=== PATIENT | female | born 1995 ===

== ENCOUNTER 2017-05-28 14:56 | Emergency (ER) | payer BC ==
[~2017-05-28] VITALS: Ht 160 cm; Wt 54.1 kg
[2017-05-28 15:16] VITALS: TEMP 37.4; Ht 160 cm; Wt 54.1 kg
[2017-05-28] MEDS ORDERED: LEVO1IUD2 (15:27)
[2017-05-28] MEDS ORDERED: DOXY100C76 PO (15:27)
[2017-05-28] MEDS ORDERED: ONDANSETRON INJ 2 MG/ML 2 ML VIAL IV STA (15:58)
[2017-05-28] MEDS ORDERED: SODIUM CHLORIDE 0.9% 1000ML 1,000 ML IV STA ×2 (15:58)
[2017-05-28] MEDS ORDERED: MoRPHine SULFATE 4 MG/ML 1 ML CARP\\VIAL IV STA ×2 (15:58→17:58)
[2017-05-28] MEDS ORDERED: KETOROLAC TROMETHAMINE 30 MG/ML VIAL IV STA (15:58)
[2017-05-28 16:33] LABS: BASO % 0.3 %; BASO ABS # 0.02 K/uL (0-0.2); EOS % 0.9 %; EOS ABS # 0.06 K/uL (0-0.5); HEMATOCRIT 41.3 % (37-47); HEMOGLOBIN 14.9 g/dL (12.0-16.0); IG# 0.01 K/uL (0.00-0.02); LYMPH % 33.2 %; LYMPH ABS # 2.18 K/uL (1.2-3.4); MEAN CORPUSCULAR HEMOGLOBIN 33.2 pg (25-34); MEAN CORPUSCULAR HGB CONC 36.1 g/dl (32-36); MEAN PLATELET VOLUME 9.5 fL (7.4-10.4); MONO % 4.7 %; MONO ABS # 0.31 K/uL (0.11-0.59); NEUT % 60.7 %; NEUT ABS # 3.98 K/uL (1.4-6.5); PLATELET COUNT 275 K/uL (130-400); RED CELL DISTRIBUTION WIDTH CV 12.4 % (11.5-14.5); RED CELL DISTRIBUTION WIDTH SD 41.6 fL (36.4-46.3); WHITE BLOOD COUNT 6.56 K/uL (4.8-10.8)
[2017-05-28 16:52] LABS: ALBUMIN 4.5 gm/dl (3.4-5.0); CALCIUM 9.9 mg/dl (8.5-10.1); CREATININE 0.65 mg/dl (0.60-1.20); POTASSIUM 3.5 mmol/L (3.5-5.1)
[2017-05-28 16:54] LABS: TOTAL PROTEIN 8.3 gm/dl (6.4-8.2)
--- NOTE | 2017-05-28 17:48 | DIAGNOSTIC IMAGING REPORT ---
PELVIC COMPLETE NON OB HISTORY: 21 years-old Female EVAL PELVIC PAIN, R>L, TUBO-OVARIAN ABSCESS? Acute bilateral pelvic pain COMPARISON: None available TECHNIQUE: Multiple real-time sonographic images of the deep pelvic structures were obtained transabdominally and transvaginally assessing grayscale appearance, color and spectral flow FINDINGS: TRANSABDOMINAL: Anteflexed uterus measures 7.5 x 2.8 x 3.4 cm. Endometrium measures 0.4 cm. Right ovary measures 4.1 x 1.8 x 3.4 cm with follicles noted. There is a hypoechoic structure within the right ovary suggesting dominant follicle. Arterial inflow to the right ovary is documented. The left ovary measures 4.0 x 1.8 x 2.0 cm and is unremarkable with arterial inflow documented. TRANSVAGINAL: Anteflexed uterus measures 6.7 x 2.9 x 4.5 cm. Intrauterine device is noted within the mid and fundal portions of the uterus which appears appropriately positioned. Endometrium measures 0.6 cm in thickness. No myometrial mass lesions identified. Arterial inflow noted within the right ovary measuring 3.9 x 2.7 x 3.0 cm. 1.4 cm cystic structure of the right ovary suggests dominant follicle. Left ovary measures 3.7 x 2.4 x 2.2 cm and is unremarkable with arterial inflow documented. Mild amount of free pelvic fluid within the cul-de-sac. IMPRESSION: 1. 1.4 cm cystic lesion of the right ovary suggests dominant follicle. No evidence of ovarian torsion. 2. IUD in situ. 3. Unremarkable sonographic appearance of the uterus and endometrium. 4. Mild free pelvic fluid, likely physiologic. The above report was generated using voice recognition software. It may contain grammatical, syntax or spelling errors. Electronically signed by: Angelito Levy M.D. 05/28/2017 5:46 PM Dictated Date/Time: 05/28/2017 5:43 PM
[2017-05-28] MEDS ORDERED: ONDA4TAB10 SL (19:23)
[2017-05-28] MEDS ORDERED: OXYC1TAB3 PO (19:23)
--- NOTE | 2017-05-28 19:23 | EMERGENCY ROOM VISIT NOTE ---
History First contact with patient: 15:41 Chief Complaint: PELVIC PAIN Stated Complaint: ABDOMINAL PAIN, VAGINAL DISCHARGE, LEG/PELVIC PAIN History of Present Illness Patient is a 21-year-old white female, [employer] student from [place], who presents the emergency department accompanied by her boyfriend for evaluation of pelvic pain. Patient was referred to the emergency department by [facility] for follow-up of suspected PID. Patient relates that she has a Mirena IUD in place for irregular menses, she has had it for about 1-2 years. She reports that she had a partner for a year which ended a couple of months ago. She met a new partner in March of this year and began having unprotected sex in April. She developed some pelvic cramping and vaginal bleeding on 05/15. She was seen at an urgent care center on 05/17 for heavy bleeding, but did not have a pelvic exam. While home in [place] over spring break on 05/21, she was seen at the advanced practice professional office and had swabs for chlamydia and gonorrhea. They reportedly could see the IUD strings at that time , she did not have a bimanual exam performed. She continued to have a lot of pelvic pain. She was contacted by the advanced practice professional on 05/25 with a positive Chlamydia test. She was seen by the physician and told that she had PID. She was given an injection of an antibiotic and a prescription for doxycycline 100 mg twice daily for 14 days. The patient continues to note a lot of pelvic pain. It is right worse than left, and radiates down into her legs. Bleeding has now essentially resolved and she notes only scant vaginal discharge. She has not been using any additional medications for her pain, which she presently rates a 6/10. She has been nauseous, but has not vomited, and attributes the nausea to taking the doxycycline. She has been checking her temperature with a thermometer at home and has been afebrile, but was documented to have a fever at [facility] of 100.6 temporal. She denies any urinary symptoms. No chest pain, palpitations or shortness of breath. No calf or leg pain or swelling. The patient was seen and examined at [facility] by Dr. Blackmon and referred to the emergency department for suspected failed outpatient management of PID. He did a cervical exam which elicited significant cervical motion tenderness. A urine test performed at [facility] today was negative. Review of Systems Review of systems as per HPI. All other systems reviewed were negative. 10 systems reviewed. Past Medical/Surgical History Medical Problems: (1) Irregular menses (2) Pyelonephritis (3) Recurrent UTI Surgical Problems: (1) H/O wisdom tooth extraction Electronic medical records are reviewed and summarized as above/below. See Problem List. Records from [facility] that accompanied the patient are also reviewed. Social History Smoking Status: Current Some Day Smoker Alcohol Use: occasionally Housing Status: lives with roommate Occupation Status: [employer] student Current/Historical Medications Scheduled Doxycycline Monohydrate (Monodox), 100 MG PO BID Scheduled PRN Ondasetron Odt (Zofran Odt), 4 MG SL Q6H PRN for Nausea or Vomiting Oxycodone Ir (Roxicodone Ir), 1-2 TAB PO Q4H PRN for Severe Pain Miscellaneous Medications Levonorgestrel (Iud) (Mirena) Physical Exam Vital Signs Date Time Temp Pulse Resp B/P (MAP) Pulse Ox O2 Delivery O2 Flow Rate FiO2 05/28/17 19:55 82 20 118/72 98 05/28/17 17:30 61 16 96/65 100 Room Air 05/28/17 15:16 37.4 81 18 116/78 99 Room Air Physical Exam CONSTITUTIONAL: Patient is a petite, well-appearing 21-year-old white female who is awake and alert and in no acute distress. Temperature 37.4C orally. EYES: Pupils equal, round, reactive to light and accommodation. EOMs intact without nystagmus. Sclera are anicteric. ENT: Tympanic membranes intact, with normal landmarks. External canals are clear. Oral and nasopharynx are clear. Mucous membranes are moist, no lesions , tongue and gums appear normal. NECK: Supple without lymphadenopathy. No thyromegaly. No meningeal signs. Full active range of motion without discomfort. CARDIOVASCULAR: Regular rate and rhythm, with normal S1 and S2, no murmur or gallop or rub is heard. No carotid bruits auscultated. No JVD. Peripheral pulses easily palpable. RESPIRATORY: Breath sounds equal and clear to auscultation without wheezes, rales, or rhonchi heard. Full and equal chest expansion without accessory muscle use or retractions. ABDOMEN: Bowel sounds are present. Abdomen is soft, scaphoid, nondistended, moderately tender to palpation in the lower quadrants, right worse than left, with voluntary guarding. No rigidity appreciated. No peritoneal signs. INTEGUMENTARY: No lesions or rash, normal skin turgor. LYMPH: No lymphadenopathy. Medical Decision & Procedures ER Provider Diagnostic Interpretation: PELVIC COMPLETE NON OB HISTORY: 21 years-old Female EVAL PELVIC PAIN, R>L, TUBO-OVARIAN ABSCESS? Acute bilateral pelvic pain COMPARISON: None available TECHNIQUE: Multiple real-time sonographic images of the deep pelvic structures were obtained transabdominally and transvaginally assessing grayscale appearance, color and spectral flow FINDINGS: TRANSABDOMINAL: Anteflexed uterus measures 7.5 x 2.8 x 3.4 cm. Endometrium measures 0.4 cm. Right ovary measures 4.1 x 1.8 x 3.4 cm with follicles noted. There is a hypoechoic structure within the right ovary suggesting dominant follicle. Arterial inflow to the right ovary is documented. The left ovary measures 4.0 x 1.8 x 2.0 cm and is unremarkable with arterial inflow documented. TRANSVAGINAL: Anteflexed uterus measures 6.7 x 2.9 x 4.5 cm. Intrauterine device is noted within the mid and fundal portions of the uterus which appears appropriately positioned. Endometrium measures 0.6 cm in thickness. No myometrial mass lesions identified. Arterial inflow noted within the right ovary measuring 3.9 x 2.7 x 3.0 cm. 1.4 cm cystic structure of the right ovary suggests dominant follicle. Left ovary measures 3.7 x 2.4 x 2.2 cm and is unremarkable with arterial inflow documented. Mild amount of free pelvic fluid within the cul-de-sac. IMPRESSION: 1. 1.4 cm cystic lesion of the right ovary suggests dominant follicle. No evidence of ovarian torsion. 2. IUD in situ. 3. Unremarkable sonographic appearance of the uterus and endometrium. 4. Mild free pelvic fluid, likely physiologic. Laboratory Results 05/28/17 16:15 Red Blood Count 4.49, Mean Corpuscular Volume 92.0, Mean Corpuscular Hemoglobin 33.2, Mean Corpuscular Hemoglobin Concent 36.1, Mean Platelet Volume 9.5, Neutrophils (%) (Auto) 60.7, Lymphocytes (%) (Auto) 33.2, Monocytes (%) (Auto) 4.7, Eosinophils (%) (Auto) 0.9, Basophils (%) (Auto) 0.3, Neutrophils # (Auto) 3.98, Lymphocytes # (Auto) 2.18, Monocytes # (Auto) 0.31, Eosinophils # (Auto) 0.06, Basophils # (Auto) 0.02 05/28/17 16:15 Test 05/28/17 16:15 05/28/17 16:27 05/28/17 17:30 White Blood Count 6.56 K/uL (4.8-10.8) Red Blood Count 4.49 M/uL (4.2-5.4) Hemoglobin 14.9 g/dL (12.0-16.0) Hematocrit 41.3 % (37-47) Mean Corpuscular Volume 92.0 fL (80-100) Mean Corpuscular Hemoglobin 33.2 pg (25-34) Mean Corpuscular Hemoglobin Concent 36.1 g/dl (32-36) Platelet Count 275 K/uL (130-400) Mean Platelet Volume 9.5 fL (7.4-10.4) Neutrophils (%) (Auto) 60.7 % Lymphocytes (%) (Auto) 33.2 % Monocytes (%) (Auto) 4.7 % Eosinophils (%) (Auto) 0.9 % Basophils (%) (Auto) 0.3 % Neutrophils # (Auto) 3.98 K/uL (1.4-6.5) Lymphocytes # (Auto) 2.18 K/uL (1.2-3.4) Monocytes # (Auto) 0.31 K/uL (0.11-0.59) Eosinophils # (Auto) 0.06 K/uL (0-0.5) Basophils # (Auto) 0.02 K/uL (0-0.2) RDW Standard Deviation 41.6 fL (36.4-46.3) RDW Coefficient of Variation 12.4 % (11.5-14.5) Immature Granulocyte % (Auto) 0.2 % Immature Granulocyte # (Auto) 0.01 K/uL (0.00-0.02) Anion Gap 9.0 mmol/L (3-11) Est Creatinine Clear Calc Drug Dose 114.2 ml/min Estimated GFR () 148.1 Estimated GFR (Non- 127.8 BUN/Creatinine Ratio 19.4 (10-20) Calcium Level 9.9 mg/dl (8.5-10.1) Total Bilirubin 0.7 mg/dl (0.2-1) Aspartate Amino Transf (AST/SGOT) 19 U/L (15-37) Alanine Aminotransferase (ALT/SGPT) 18 U/L (12-78) Alkaline Phosphatase 59 U/L (45-117) Total Protein 8.3 gm/dl (6.4-8.2) Albumin 4.5 gm/dl (3.4-5.0) Globulin 3.8 gm/dl (2.5-4.0) Albumin/Globulin Ratio 1.2 (0.9-2) Lipase 85 U/L (73-393) Human Chorionic Gonadotropin, Qual NEG (NEG) Bedside Lactic Acid Venous 1.38 mmol/L (0.90-1.70) Urine Color YELLOW Urine Appearance CLEAR (CLEAR) Urine pH 8.0 (4.5-7.5) Urine Specific [place] 1.013 (1.000-1.030) Urine Protein NEG (NEG) Urine Glucose (UA) NEG (NEG) Urine Ketones NEG (NEG) Urine Occult Blood 2+ (NEG) Urine Nitrite NEG (NEG) Urine Bilirubin NEG (NEG) Urine Urobilinogen NEG (NEG) Urine Leukocyte Esterase TRACE (NEG) Urine WBC (Auto) 5-10 /hpf (0-5) Urine RBC (Auto) 10-30 /hpf (0-4) Urine Hyaline Casts (Auto) 0 /lpf (0-5) Urine Epithelial Cells (Auto) >30 /lpf (0-5) Urine Bacteria (Auto) NEG (NEG) Medications Administered Medications (Trade) Dose Ordered Sig/Francis Route Start Time Stop Time Status Last Admin Dose Admin Sodium Chloride 1,000 ml @ 999 mls/hr Q1H1M STAT IV 05/28/17 15:58 05/28/17 16:58 DC 05/28/17 16:17 999 MLS/HR Sodium Chloride 1,000 ml @ 250 mls/hr Q4H STAT IV 05/28/17 15:58 05/28/17 19:57 DC 05/28/17 15:58 250 MLS/HR Ketorolac Tromethamine (Toradol Inj) 30 mg NOW STAT IV 05/28/17 15:58 05/28/17 16:03 DC 05/28/17 16:19 30 MG Ondansetron HCl (Zofran Inj) 4 mg NOW STAT IV 05/28/17 15:58 05/28/17 16:03 DC 05/28/17 16:19 4 MG Morphine Sulfate (MoRPHine SULFATE INJ) 4 mg NOW STAT IV 05/28/17 15:58 05/28/17 16:03 DC 05/28/17 16:18 4 MG Morphine Sulfate (MoRPHine SULFATE INJ) 4 mg NOW STAT IV 05/28/17 17:58 05/28/17 17:59 DC 05/28/17 18:36 4 MG ED Course The patient was seen and assessed as above. Her old records were reviewed. IV lock was initiated and laboratory studies were collected including CBC with differential, CMP, lipase, blood cultures 2, serum hCG and [id number] lactic acid. She was hydrated with normal saline solution, and medicated with Toradol 30 mg, Zofran 4 mg and morphine 4 mg IV. Pelvic ultrasound was ordered. Laboratory studies were largely unremarkable. There is no leukocytosis, left shift or bandemia. H&H is normal. Electrolytes, renal functions, liver functions and lipase are all within normal limits. Her test is negative and her lactic acid is not elevated. Urinalysis is consistent with infection with greater than 30 epithelial cells. Trace leuk esterase, blood, WBCs and RBCs are noted. Urine is nitrate negative. Pelvic ultrasound was essentially benign. IUD appeared to be in appropriate position. There is a 1.4 cm cystic lesion in the right ovary suggestive of a dominant follicle. There is no evidence for torsion. Otherwise unremarkable uterus and endometrium. Mild free pelvic fluid was noted. The patient was reassessed when she returned from ultrasound and was made aware of the results of her laboratory studies. She noted increased pain after the ultrasound and was given additional morphine 4 mg IV. All laboratory and diagnostic imaging studies were reviewed with attending physician. Patient was discussed with gynecology, Dr. Mandel, who presented to the emergency department , evaluated and examined the patient. He removed her IUD. Please refer to his consultation for further information. We discussed treatment plan, and at this point, she will be discharged home with pain medication. She will follow-up with gynecology in 3 days. Discharge planning was discussed with the patient. She will continue the doxycycline and was prescribed oxycodone and Zofran to use for pain and nausea. She will monitor her temperature closely, and contact gynecology for any changes or condition or other concerns. She expressed understanding of this and was agreeable. She was discharged home in stable condition with her boyfriend. Vital signs were stable at discharge and she rated her pain a 3/10. Differential diagnoses entertained included UTI, pyelonephritis, ovarian cyst, ovarian torsion, , ectopic , cervicitis, PID, tubo-ovarian abscess, Areli Armond syndrome, appendicitis, among others. Medical Decision See emergency department course. [facility] Drug Monitoring Program Search Results: patient reviewed within database, no issues identified Medication Reconcilliation Current Medication List: was personally reviewed by sc Blood Pressure Screening Patient's blood pressure: Normal blood pressure Blood pressure disposition: Did not require urgent referral Impression Primary Impression: Pelvic inflammatory disease Departure Information Prescriptions Ondasetron Odt (ZOFRAN ODT) 4 Mg Tab 4 MG SL Q6H Y for Nausea or Vomiting, #20 TAB Prov: Vijaya Mauricio PA 05/28/17 Oxycodone Ir (Roxicodone Ir) 5 Mg Tab 1-2 TAB PO Q4H Y for Severe Pain, #25 TAB For Initial Treatment Prov: Vijaya Mauricio PA 05/28/17 Referrals No Doctor, Assigned (PCP) Patient Instructions [facility] Additional Instructions DO NOT drive, drink alcohol, operate machinery, or perform dangerous activities today. You were given medications in the ER that can affect your ability to safely function or operate a vehicle. Oxycodone (OxyIR) 5mg: Take 1-2 pills every four hours for breakthrough pain. Avoid alcohol, operating machinery or dangerous equipment, working on ladders or roofs, DRIVING, or situations where being under the influence may be dangerous. It is recommended to use an [id number] stool softener such as Colace, 100mg twice daily while taking this medication to avoid constipation. Zofran(odansetron) tablets 4mg: Take one and allow it to dissolve in your mouth every four to six hours as needed for nausea or vomiting. Continue doxycycline as previously prescribed. Rest and drink plenty of fluids as tolerated. Slow sips of water or sports drinks are recommended instead of large amounts all at once. Once your stomach is settled start with a clear liquid diet (jello, soup broth, etc.) and then advance as tolerated. You should avoid full, heavy meals for about 24 hrs from the time your symptoms resolved. Dr. Mandel's office will contact you by phone tomorrow to set up an appointment for , 05/31. Please call his office for worsening pain, fevers, vomiting , or any other concerns.
[2017-05-28 19:55] VITALS: BP 118/72; PULSE 82; O2SAT 98
--- NOTE | 2017-05-28 20:13 | GYNECOLOGICAL CONSULTATION ---
DATE OF CONSULTATION: 05/28/2017 REQUESTING PROVIDER: CLAUDIO Francis INDICATION: Pelvic pain/PID. ADMISSION HISTORY: The patient is a 21-year-old 0, Mirena IUD in place, who presents to the Emergency Room from [facility] for evaluation of probable PID. The patient had the IUD placed approximately 2 years ago for cycle regulation. In April, she began to have some post-coital bleeding. Just prior to break last week she developed severe lower abdominal pain and was evaluated by a physician at her home in [place]. The patient called back 72 hours later and culture results were positive for chlamydia. The patient was treated apparently with IM Rocephin and started on doxycycline 100 mg p.o. b.i.d. The treatment initiated on 05/25/2017. Since then, the patient's pain has increased. She has been having what she described as low grade fevers, but she was not taking her temperature at home. She was seen by [facility] and followed up this morning and was noted to have a temperature of 100.6 and was sent to the emergency room for evaluation. PAST MEDICAL HISTORY: OB: Nulligravida. PACKING MACHINE TENDER: As above. PHYSICAL EXAMINATION: GENERAL: Shows a thin white female in no acute distress. VITAL SIGNS: Show blood pressure of 96/65 and a pulse of 61. ABDOMEN: Tender to palpation, but no distinct rebound. Positive bowel sounds. PELVIC: Shows normal external genitalia. Vaginal vault is pink and rugated. The cervical os is closed. IUD string is palpable. Bimanual examination shows an anterior mobile uterus that is tender to palpation. The adnexa show no palpable masses. EXTREMITIES: Shows no deep calf tenderness. NEUROLOGIC: Grossly intact. IMAGING: Pelvic ultrasound shows a small anterior uterus with normal adnexa bilaterally with no evidence of hydrosalpinx. IUD appears to be in mid position. LABORATORY VALUES: Show a white count of 6000. IMPRESSION: A 21-year-old 0, reported positive chlamydia culture with pelvic pain on outpatient therapy. PLAN: The patient reportedly had an elevated temperature at S, is afebrile here with no white count and an unremarkable pelvic ultrasound. The patient is fairly tender on examination and I am wondering if some of that could be secondary to the IUD. In reviewing the ultrasound pictures, the IUD appears to be not at the fundus, but more in the mid position of the uterus and I believe that this could be a significant contributor to her pain. It would also account for the post-coital bleeding that she began to develop. Treatment options were discussed with the patient and I have advised removal of the IUD and then monitoring for clinical response to this in terms of her pain. The patient agrees with this and was placed back in the dorsal lithotomy position. The IUD was removed, shown to her and discarded. The patient was sent home to continue her p.o. antibiotics and she was given a prescription for pain medication. She is going to follow up in my office in 48 hours for repeat examination. The patient is going to take her temperature at home and if her temperature is greater than 100.4., she will call and reconsideration for admission for IV antibiotics. All questions answered of the patient.
== END 2017-05-28 19:58 | disposition home or self-care (01) ==
LOC: C.EDB 14:58 → C.EDA 19:58
DX: N73.9 Female pelvic inflammatory disease, unspecified (principal); Z87.440 Personal history of urinary (tract) infections; F17.210 Nicotine dependence, cigarettes, uncomplicated